=== PATIENT | female | born 1990 | race Caucasian/White ===

== ENCOUNTER → 2017-02-07 | Outpatient (CLI) | payer OTHER | LOC: BMCIMAGING 12:39 | PROVIDERS: ATTEND Internal Medicine | DX: M46.96 Unspecified inflammatory spondylopathy, lumbar region (principal) ==

== ENCOUNTER → 2017-08-15 | Outpatient (CLI) | payer OTHER | LOC: FIMAGING 16:29 | PROVIDERS: ATTEND Allergy & Immunology Allergy | DX: R94.2 Abnormal results of pulmonary function studies (principal); Z87.09 Personal history of other diseases of the respiratory system ==